=== PATIENT | male | born 1940 | race Caucasian/White ===

== ENCOUNTER 2020-12-18 18:59 | Inpatient (IN) | payer MEDICARE ==
[2020-12-18 19:33] LABS: Hemoglobin 14.3 g/dL (14.0-18.0); Mean Corpuscular HGB CONC 29.5 g/dL (32.0-36.0); Mean Corpuscular Hemoglobin 27.6 pg (27.0-31.0); Mean Corpuscular Volume 93.4 fL (78.0-98.0); Mean Platelet Volume 7.8 fL (7.4-10.4); Platelet Count 291 thou/uL (130-400); RBC Distribution Width 12.6 % (11.5-14.5); White Blood Cell (WBC) Count 27.5 thou/uL (4.8-10.8)
[2020-12-18 19:53] LABS: ALT (SGPT) 178 U/L (8-55); AST (SGOT) 186 U/L (5-34); Albumin 3.8 g/dL (3.4-4.8); Alkaline Phosphatase 123 U/L (40-110); Anion Gap 24 mmol/L (10-20); BUN (Urea Nitrogen) 36 mg/dL (8.4-25.7); Bilirubin, Total 1.2 mg/dL (0.2-1.2); Calc. Creatinine Clearance 0 mL/min (70-130); Calcium 9.9 mg/dL (7.8-10.44); Carbon Dioxide 15 mmol/L (23-31); Chloride 102 mmol/L (98-107); Globulin 2.6 g/dL (2.4-3.5); Glucose 318 mg/dL (83-110); Protein, Total 6.4 g/dL (5.8-8.1); Sodium 135 mmol/L (136-145)
[2020-12-18] MEDS ORDERED: Succinylcholine 200 MG/10 ml SYRINGE FS ONE (19:54)
[2020-12-18] MEDS ORDERED: Ketamine 50 MG/ML (10ML VIAL) ONE (19:54)
[2020-12-18 19:58] LABS: Band 4 % (5-11); Hypochromia SLIGHT = 6-15 cells (100X) (0-5/hpf); Lymphocytes 15 % (21-51); MDiff Complete? YES; Monocytes 6 % (0-10); Neutrophil 68 % (42-75); Platelet Morphology Comment Appears Adequate; Polychromasia SLIGHT = 2-3 cells (100X) (0-2/hpf); Reactive Lymphocytes 7 % (0-10)
[2020-12-18] MEDS ORDERED: Lidocaine 1% (PF) 30 ML VIAL ONE (20:14)
[2020-12-18] MEDS ORDERED: EPINEPHrine 1 MG/10 ML Abboject SYRINGE ONE ×2 (20:15→20:22)
[2020-12-18] MEDS ORDERED: EPINEPHrine 4 MG in Dextrose 5% in Water 250 ML IV SCH (20:15)
[2020-12-18] MEDS ORDERED: EPINEPHrine 1 MG/ML AMP ONE (20:15)
[2020-12-18 20:18] LABS: CKMB 4.7 ng/mL (0-6.6)
[2020-12-18] MEDS ORDERED: Calcium Chloride 1 GM/10 ML Abboject SYRINGE ONE (20:22)
[2020-12-18] MEDS ORDERED: Fentanyl 100 MCG/2 ML VIAL ONE ×3 (20:22→20:32)
[2020-12-18] MEDS ORDERED: Sodium Bicarb 50 MEQ/50 ML Abboject 8.4% SYRINGE ONE (20:22)
[2020-12-18] MEDS ORDERED: PROPOFOL 200 MG/20 ML VIAL ONE (20:50)
[2020-12-18] MEDS ORDERED: Vancomycin 1 GM/200 ML BAG ONE (21:16)
[2020-12-18] MEDS ORDERED: Gentamicin 80 MG/2 ML VIAL ONE (21:31)
[2020-12-18] MEDS ORDERED: CEFAZOLIN 1 GM VIAL ONE (21:31)
[2020-12-18 22:43] LABS: Actual Bicarbonate (HCO3a) 17.9 mEq/L (22-28); Analyzer IN Cardio OR; Base Excess (BEa) -8.6 mEq/L (-2.0 to +3.0); CO2 Tension 40.7 mmHg (35.0-45.0); Calcium, Ionized (arterial) 1.42 mmol/L (1.12-1.30); Carboxyhemoglobin (COHb) 0.7 gm% (0.0-3.0); Hemoglobin (Hb) 13.8 g/dL (14.0-18.0); O2 Tension (PaO2), arterial 88.4 mmHg (> 60.0); Potassium - ABG Lab 4.96 mmol/L (3.70-5.30); pH, Arterial 7.26 (7.35-7.45)
[2020-12-18 22:44] LABS: ALV-art Gradient 573.725 mmHg (0-20); Puncture Site Arterial Line
[2020-12-18] MEDS ORDERED: Sodium Chloride 0.9% 1,000 ML IV SCH (22:45)
[2020-12-18] MEDS ORDERED: DOPamine 400 MG/D5W 250 ML 250 ML IVPB SCH (22:45)
[2020-12-18] MEDS ORDERED: Nitroglycerin 0.4 MG TAB (25 Tab Bottle) SL PRN (22:45)
[2020-12-18] MEDS ORDERED: Acetaminophen/Codeine 30-300mg Tablet PO PRN ×2 (22:45)
[2020-12-18] MEDS ORDERED: Propofol 1,000 MG/100 ML VIAL IV PRN (23:00)
[2020-12-18] MEDS ORDERED: DISCONTINUE PREVIOUS NARCOTIC PAIN MEDICATIONS AND BENZODIAZEPINES FS SCH (23:00)
[2020-12-18] MEDS ORDERED: Propofol BOLUS 1,000 MG/100 ML VIAL IV PRN (23:00)
[2020-12-18] MEDS ORDERED: Fentanyl CADD 100 ML IV SCH (23:00)
[2020-12-18] MEDS ORDERED: Morphine 2 MG/ML VIAL SLOW IVP PRN (23:00)
[2020-12-18] MEDS ORDERED: Fentanyl BOLUS 250 ML IVPB PRN (23:00)
[2020-12-18] MEDS ORDERED: Fentanyl CADD 100 ML ONE (23:04)
[2020-12-18 23:14] LABS: INR-International Normal Ratio 1.2; Prothrombin Time 15.8 sec (12.0-14.7)
[2020-12-18] MEDS: Lorazepam 2 MG/ML VIAL SLOW IVP PRN (23:41)
[2020-12-18 23:51] LABS: SARS-CoV-2 NAA Rapid Test Not Detected (NotDetected)
[2020-12-18] MEDS ORDERED: Ondansetron PF 4 MG/2 ML Vial IVP PRN (23:57)
[2020-12-19] MEDS ORDERED: Furosemide 40 MG/4 ML VIAL SLOW IVP SCH (01:00)
[2020-12-19] MEDS ORDERED: Dextrose 5% in Water 1,000 ML IV PRN (01:18)
[2020-12-19] MEDS ORDERED: Dextrose 50% Abboject 50 ML SYRINGE SLOW IVP PRN (01:18)
[2020-12-19] MEDS ORDERED: Ondansetron ODT 4 MG TAB PO PRN (01:18)
[2020-12-19] MEDS ORDERED: Insulin Regular 300 UNITS/3 ML VIAL IVP SCH (01:30)
[2020-12-19] MEDS: HumaLOG 300 UNITS/3 ML VIAL SC PRN ×2 (01:44→04:55)
[2020-12-19 02:10] LABS: ALT (SGPT) 461 U/L (8-55); AST (SGOT) 432 U/L (5-34); Albumin 3.3 g/dL (3.4-4.8); Alkaline Phosphatase 138 U/L (40-110); Anion Gap 19 mmol/L (10-20); BUN (Urea Nitrogen) 38 mg/dL (8.4-25.7); Bilirubin, Total 0.8 mg/dL (0.2-1.2); Calc. Creatinine Clearance 37 mL/min (70-130); Calcium 10.5 mg/dL (7.8-10.44); Carbon Dioxide 17 mmol/L (23-31); Chloride 104 mmol/L (98-107); Globulin 2.6 g/dL (2.4-3.5); Glucose 306 mg/dL (83-110); Potassium 5.3 mmol/L (3.5-5.1); Protein, Total 5.9 g/dL (5.8-8.1); Sodium 135 mmol/L (136-145)
[2020-12-19 02:24] LABS: Lactic Acid 5.8 mmol/L (0.5-2.2); Troponin I 1.803 ng/mL (< 0.028)
[2020-12-19 05:04] LABS: Anion Gap 19 mmol/L (10-20); BUN (Urea Nitrogen) 42 mg/dL (8.4-25.7); Calc. Creatinine Clearance 35 mL/min (70-130); Calcium 10.3 mg/dL (7.8-10.44); Carbon Dioxide 16 mmol/L (23-31); Chloride 105 mmol/L (98-107); Glucose 304 mg/dL (83-110); Potassium 5.1 mmol/L (3.5-5.1); Sodium 135 mmol/L (136-145)
[2020-12-19 06:12] LABS: Band 18 % (5-11); Hemoglobin 13.4 g/dL (14.0-18.0); Lymphocytes 1 % (21-51); MDiff Complete? YES; Mean Corpuscular HGB CONC 30.8 g/dL (32.0-36.0); Mean Corpuscular Hemoglobin 28.2 pg (27.0-31.0); Mean Corpuscular Volume 91.6 fL (78.0-98.0); Mean Platelet Volume 7.9 fL (7.4-10.4); Monocytes 10 % (0-10); Myelocyte 1 % (0-0); Neutrophil 70 % (42-75); Platelet Count 250 thou/uL (130-400); RBC Distribution Width 12.5 % (11.5-14.5); Red Blood Cell (RBC) Count 4.76 mill/uL (4.70-6.10); White Blood Cell (WBC) Count 30.7 thou/uL (4.8-10.8)
[2020-12-19] MEDS: Lorazepam 2 MG/ML VIAL SLOW IVP PRN (07:32)
[2020-12-19 07:37] LABS: Actual Bicarbonate (HCO3a) 16.4 mEq/L (22-28); Base Excess (BEa) -7.9 mEq/L (-2.0 to +3.0); CO2 Tension 30.6 mmHg (35.0-45.0); Calcium, Ionized (arterial) 1.37 mmol/L (1.12-1.30); Hemoglobin (Hb) 14.6 g/dL (14.0-18.0); O2 Tension (PaO2), arterial 79.7 mmHg (> 60.0); Potassium - ABG Lab 5.03 mmol/L (3.70-5.30); pH, Arterial 7.35 (7.35-7.45)
[2020-12-19 07:41] LABS: Lactic Acid 5.9 mmol/L (0.5-2.2)
[2020-12-19 07:54] LABS: Puncture Site Arterial Line
[2020-12-19] MEDS ORDERED: Sodium Bicarbonate 150 MEQ in Dextrose 5% in Water 1,000 ML IVP SCH (08:00)
[2020-12-19] MEDS: Enoxaparin Sodium 30 MG/0.3 ML SYRINGE SC SCH (08:50)
[2020-12-19] MEDS ORDERED: Norepinephrine 8 MG/0.9% NS 250 ML IVPB SCH (09:15)
[2020-12-19] MEDS ORDERED: Sodium Bicarb 50 MEQ/50 ML Abboject 8.4% SYRINGE IVP SCH (09:30)
[2020-12-19] MEDS: Sodium Bicarbonate 150 MEQ in Dextrose 5% in Water 1,000 ML IV SCH ×2 (11:26→20:55)
[2020-12-19 13:01] LABS: RBC/HPF 21-50 HPF (0-3); Squamous Epithelial 0-3 HPF (0-3); WBC/HPF 21-50 HPF (0-3)
[2020-12-19 13:02] LABS: Bacteria/HPF Rare-Few HPF (None Seen)
[2020-12-19 13:08] LABS: Calc. Creatinine Clearance 44 mL/min (70-130); Sodium 138 mmol/L (136-145)
[2020-12-19] MEDS ORDERED: Acetaminophen 325 MG TAB PO PRN (22:06)
[2020-12-20] MEDS ORDERED: Morphine 2 MG/ML VIAL SLOW IVP PRN ×2 (03:11→08:35)
[2020-12-20] MEDS: Enoxaparin Sodium 30 MG/0.3 ML SYRINGE SC SCH (09:01)
[2020-12-20 11:10] LABS: #Eosinphils 0.1 thou/uL (0.0-0.7); #Lymphocytes 1.4 thou/uL (1.20-3.40); #Neutrophils 18.4 thou/uL (1.40-6.50); %Basophils 0.2 % (0.0-1.0); %Eosinophils 0.4 % (0.0-10.0); %Lymphocytes 6.4 % (21.0-51.0); %Monocytes 9.1 % (0.0-10.0); Hemoglobin 13.7 g/dL (14.0-18.0); Mean Corpuscular Hemoglobin 29.2 pg (27.0-31.0); Mean Corpuscular Volume 91.4 fL (78.0-98.0); Mean Platelet Volume 7.9 fL (7.4-10.4); Platelet Count 157 thou/uL (130-400); RBC Distribution Width 12.3 % (11.5-14.5); Red Blood Cell (RBC) Count 4.69 mill/uL (4.70-6.10); White Blood Cell (WBC) Count 21.9 thou/uL (4.8-10.8)
[2020-12-20 11:28] LABS: Anion Gap 12 mmol/L (10-20); BUN (Urea Nitrogen) 23 mg/dL (8.4-25.7); Calc. Creatinine Clearance 69 mL/min (70-130); Calcium 9.9 mg/dL (7.8-10.44); Carbon Dioxide 28 mmol/L (23-31); Chloride 97 mmol/L (98-107); Glucose 149 mg/dL (83-110); Potassium 4.2 mmol/L (3.5-5.1); Sodium 133 mmol/L (136-145)
[2020-12-20] MEDS: Acetaminophen 325 MG TAB PO PRN (13:51)
[2020-12-20] MEDS: traMADol HCl 50 MG TAB PO PRN ×2 (14:37→20:37)
[2020-12-20] MEDS: Carvedilol 6.25 MG TAB PO SCH (16:44)
[2020-12-20] MEDS ORDERED: Calcium Carbonate 500 MG ChewTAB PO SCH (17:00)
[2020-12-20] MEDS: Sodium Bicarbonate 150 MEQ in Dextrose 5% in Water 1,000 ML IV SCH (22:54)
[2020-12-20] MEDS ORDERED: Metoprolol Tartrate 5 MG/5 ML VIAL IVP SCH (23:45)
[2020-12-21] MEDS: Metoprolol Tartrate 5 MG/5 ML VIAL IVP PRN ×2 (00:17→00:39)
[2020-12-21 00:45] LABS: Anion Gap 16 mmol/L (10-20); BUN (Urea Nitrogen) 24 mg/dL (8.4-25.7); Calc. Creatinine Clearance 72 mL/min (70-130); Calcium 10.4 mg/dL (7.8-10.44); Carbon Dioxide 22 mmol/L (23-31); Chloride 97 mmol/L (98-107); Glucose 117 mg/dL (83-110); Magnesium 1.4 mg/dL (1.6-2.6); Potassium 4.4 mmol/L (3.5-5.1); Sodium 131 mmol/L (136-145)
[2020-12-21 00:47] LABS: Hemoglobin 13.8 g/dL (14.0-18.0); Mean Corpuscular HGB CONC 30.5 g/dL (32.0-36.0); Mean Corpuscular Hemoglobin 27.9 pg (27.0-31.0); Mean Corpuscular Volume 91.6 fL (78.0-98.0); Mean Platelet Volume 7.5 fL (7.4-10.4); Platelet Count 167 thou/uL (130-400); RBC Distribution Width 12.4 % (11.5-14.5); Red Blood Cell (RBC) Count 4.94 mill/uL (4.70-6.10); White Blood Cell (WBC) Count 23.1 thou/uL (4.8-10.8)
[2020-12-21 00:50] LABS: Troponin I 0.292 ng/mL (< 0.028)
[2020-12-21 01:04] LABS: Lymphocytes 14 % (21-51); MDiff Complete? YES; Monocytes 9 % (0-10); Neutrophil 77 % (42-75); Platelet Morphology Comment Appears Adequate
[2020-12-21] MEDS ORDERED: Electrolyte Replacement Protocol FS PRN (01:15)
[2020-12-21] MEDS ORDERED: Magnesium Sulfate 4 GM in Sodium Chloride 0.9% 250 ML 250 ML IVPB SCH (01:30)
[2020-12-21] MEDS: Calcium Carbonate 500 MG ChewTAB PO PRN ×2 (01:33→20:29)
[2020-12-21 03:48] LABS: Mean Corpuscular HGB CONC 30.1 g/dL (32.0-36.0); Mean Corpuscular Hemoglobin 27.6 pg (27.0-31.0); Mean Platelet Volume 7.9 fL (7.4-10.4); Platelet Count 175 thou/uL (130-400); RBC Distribution Width 12.3 % (11.5-14.5); Red Blood Cell (RBC) Count 4.69 mill/uL (4.70-6.10); White Blood Cell (WBC) Count 23.5 thou/uL (4.8-10.8)
[2020-12-21 03:58] LABS: Anion Gap 16 mmol/L (10-20); BUN (Urea Nitrogen) 25 mg/dL (8.4-25.7); Calc. Creatinine Clearance 71 mL/min (70-130); Calcium 10.4 mg/dL (7.8-10.44); Carbon Dioxide 25 mmol/L (23-31); Chloride 97 mmol/L (98-107); Glucose 118 mg/dL (83-110); Potassium 4.6 mmol/L (3.5-5.1); Sodium 133 mmol/L (136-145)
[2020-12-21 04:07] LABS: Lymphocytes 14 % (21-51); MDiff Complete? YES; Metamyelocyte 1 % (0-0); Monocytes 10 % (0-10); Neutrophil 75 % (42-75); Platelet Morphology Comment Appears Adequate
[2020-12-21] MEDS: Carvedilol 6.25 MG TAB PO SCH ×2 (09:04→17:06)
[2020-12-21] MEDS: Acetaminophen 325 MG TAB PO PRN ×2 (09:05→20:15)
[2020-12-21] MEDS: Enoxaparin Sodium 30 MG/0.3 ML SYRINGE SC SCH (09:05)
[2020-12-21] MEDS: traMADol HCl 50 MG TAB PO PRN ×2 (09:06→20:16)
[2020-12-21] MEDS: Amoxicillin/Potassium Clav 875 MG TAB PO SCH (21:24)
[2020-12-22] MEDS: Amoxicillin/Potassium Clav 875 MG TAB PO SCH ×2 (08:40→21:20)
[2020-12-22] MEDS: Enoxaparin Sodium 30 MG/0.3 ML SYRINGE SC SCH (08:41)
[2020-12-22] MEDS: Carvedilol 6.25 MG TAB PO SCH ×2 (08:41→17:04)
[2020-12-22] MEDS: traMADol HCl 50 MG TAB PO PRN ×2 (09:48→21:19)
[2020-12-22] MEDS: Acetaminophen 325 MG TAB PO PRN ×2 (09:49→17:04)
[2020-12-22] MEDS: Calcium Carbonate 500 MG ChewTAB PO PRN (21:20)
[2020-12-23 04:15] LABS: #Basophils 0.1 thou/uL (0.0-0.2); #Eosinphils 0.4 thou/uL (0.0-0.7); #Lymphocytes 1.5 thou/uL (1.20-3.40); #Monocytes 1.4 thou/uL (0.11-0.59); #Neutrophils 9.8 thou/uL (1.40-6.50); %Basophils 0.7 % (0.0-1.0); %Eosinophils 2.7 % (0.0-10.0); %Lymphocytes 11.4 % (21.0-51.0); %Monocytes 10.5 % (0.0-10.0); %Neutrophils 74.6 % (42.0-75.0); Hemoglobin 13.6 g/dL (14.0-18.0); Mean Corpuscular HGB CONC 33.7 g/dL (32.0-36.0); Mean Corpuscular Hemoglobin 31.1 pg (27.0-31.0); Mean Corpuscular Volume 92.3 fL (78.0-98.0); Mean Platelet Volume 7.8 fL (7.4-10.4); Platelet Count 163 thou/uL (130-400); RBC Distribution Width 12.4 % (11.5-14.5); Red Blood Cell (RBC) Count 4.36 mill/uL (4.70-6.10); White Blood Cell (WBC) Count 13.1 thou/uL (4.8-10.8)
[2020-12-23 04:28] LABS: Anion Gap 14 mmol/L (10-20); BUN (Urea Nitrogen) 25 mg/dL (8.4-25.7); Calc. Creatinine Clearance 81 mL/min (70-130); Carbon Dioxide 24 mmol/L (23-31); Chloride 99 mmol/L (98-107); Glucose 91 mg/dL (83-110); Potassium 4.4 mmol/L (3.5-5.1); Sodium 133 mmol/L (136-145)
[2020-12-23 05:34] VITALS: BMI 31.1
[2020-12-23] MEDS: traMADol HCl 50 MG TAB PO PRN ×2 (06:26→21:33)
[2020-12-23] MEDS: Carvedilol 6.25 MG TAB PO SCH ×2 (09:28→16:51)
[2020-12-23] MEDS: Amoxicillin/Potassium Clav 875 MG TAB PO SCH ×2 (09:29→20:07)
[2020-12-23] MEDS: Enoxaparin Sodium 30 MG/0.3 ML SYRINGE SC SCH (09:29)
[2020-12-23] MEDS: Calcium Carbonate 500 MG ChewTAB PO PRN (20:07)
[2020-12-24 05:24] LABS: #Eosinphils 0.4 thou/uL (0.0-0.7); #Lymphocytes 1.8 thou/uL (1.20-3.40); #Monocytes 1.6 thou/uL (0.11-0.59); #Neutrophils 8.4 thou/uL (1.40-6.50); %Basophils 0.2 % (0.0-1.0); %Eosinophils 3.4 % (0.0-10.0); %Lymphocytes 14.5 % (21.0-51.0); %Monocytes 12.7 % (0.0-10.0); %Neutrophils 69.2 % (42.0-75.0); Hemoglobin 12.4 g/dL (14.0-18.0); Mean Corpuscular Hemoglobin 28.5 pg (27.0-31.0); Mean Corpuscular Volume 91.9 fL (78.0-98.0); Mean Platelet Volume 7.8 fL (7.4-10.4); Platelet Count 221 thou/uL (130-400); RBC Distribution Width 12.4 % (11.5-14.5); Red Blood Cell (RBC) Count 4.35 mill/uL (4.70-6.10); White Blood Cell (WBC) Count 12.2 thou/uL (4.8-10.8)
[2020-12-24 05:33] LABS: Hemoglobin A1c 5.7 % (4.0-6.0)
[2020-12-24 05:52] LABS: Anion Gap 13 mmol/L (10-20); BUN (Urea Nitrogen) 23 mg/dL (8.4-25.7); Calc. Creatinine Clearance 79 mL/min (70-130); Calcium 10.1 mg/dL (7.8-10.44); Carbon Dioxide 26 mmol/L (23-31); Chloride 96 mmol/L (98-107); Glucose 87 mg/dL (83-110); Potassium 4.4 mmol/L (3.5-5.1); Sodium 131 mmol/L (136-145)
[2020-12-24] MEDS: traMADol HCl 50 MG TAB PO PRN (06:28)
[2020-12-24 07:42] VITALS: TEMP 97.9
[2020-12-24] MEDS: Carvedilol 6.25 MG TAB PO SCH (08:17)
[2020-12-24] MEDS: Enoxaparin Sodium 30 MG/0.3 ML SYRINGE SC SCH (08:17)
[2020-12-24] MEDS: Amoxicillin/Potassium Clav 875 MG TAB PO SCH (08:18)
[2020-12-24 08:19] VITALS: BP 141/86
== END 2020-12-24 10:02 | disposition home health service (06) | DRG 242 ==
LOC: ERS 18:59 → CCU 20:35 → CCL 21:00 → CCU 22:28 → 2NO 12-22 15:17
PROVIDERS: ADMIT Internal Medicine Cardiovascular Disease; ATTEND Internal Medicine Cardiovascular Disease
PROC: 0JH606Z Insertion of Pacemaker, Dual Chamber into Chest Subcutaneous Tissue and Fascia, Open Approach (ICD-10-PCS; principal; 2020-12-18)
PROC: 02HK3JZ Insertion of Pacemaker Lead into Right Ventricle, Percutaneous Approach (ICD-10-PCS; 2020-12-18)
PROC: 02H63JZ Insertion of Pacemaker Lead into Right Atrium, Percutaneous Approach (ICD-10-PCS; 2020-12-18)
PROC: 4A023N8 Measurement of Cardiac Sampling and Pressure, Bilateral, Percutaneous Approach (ICD-10-PCS; 2020-12-18)
PROC: B2111ZZ Fluoroscopy of Multiple Coronary Arteries using Low Osmolar Contrast (ICD-10-PCS; 2020-12-18)
PROC: 5A12012 Performance of Cardiac Output, Single, Manual (ICD-10-PCS; 2020-12-18)
PROC: 0BH17EZ Insertion of Endotracheal Airway into Trachea, Via Natural or Artificial Opening (ICD-10-PCS; 2020-12-18)
PROC: 5A1945Z Respiratory Ventilation, 24-96 Consecutive Hours (ICD-10-PCS; 2020-12-18)
DX: I44.2 Atrioventricular block, complete (principal); J96.01 Acute respiratory failure with hypoxia; I46.2 Cardiac arrest due to underlying cardiac condition; J18.9 Pneumonia, unspecified organism; R65.11 Systemic inflammatory response syndrome (SIRS) of non-infectious origin with acute organ dysfunction; N17.9 Acute kidney failure, unspecified; E87.2 Acidosis; E87.1 Hypo-osmolality and hyponatremia; I77.89 Other specified disorders of arteries and arterioles; I25.10 Atherosclerotic heart disease of native coronary artery without angina pectoris; E11.22 Type 2 diabetes mellitus with diabetic chronic kidney disease; I12.9 Hypertensive chronic kidney disease with stage 1 through stage 4 chronic kidney disease, or unspecified chronic kidney disease; E87.5 Hyperkalemia; N18.9 Chronic kidney disease, unspecified; E11.59 Type 2 diabetes mellitus with other circulatory complications; R07.89 Other chest pain; F41.9 Anxiety disorder, unspecified; I95.9 Hypotension, unspecified; Z20.822 Contact with and (suspected) exposure to COVID-19; Z86.16 Personal history of COVID-19; Z98.890 Other specified postprocedural states; Z87.891 Personal history of nicotine dependence
CPT/HCPCS: 31500; 33208; 33210; 36415; 36416; 70450; 71045; 72125; 76942; 80048; 80053; 81015; 82010; 82553; 82805; 83036; 83605; 83735; 83880; 84484; 85025; 85610; 85730; 86850; 86900; 86901; 92950; 92953; 93005; 93010; 93306; 93458; 93798; 94002; 94760; 96365; 96368; 96375; 96376; C1785; C1898; J0171; J0690; J1265; J1580; J1650; J1815; J1940; J2001; J2060; J2270; J2704; J3010; J3370; J3475; J7050; J7070; U0002